=== PATIENT | male | born 2000 | race Hispanic/Latino ===

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

== ENCOUNTER 2022-09-29 01:12 | Emergency (ER) | payer MEDICAID ==
[~2022-09-29] VITALS: Ht 180.3 cm; Wt 99.8 kg
[~2022-09-29 01:12] MED LIST: ALBU8.5H8 IH; D-ME1POW16 PO
[2022-09-29] MEDS ORDERED: IBUP-1493 PO (02:12)
[2022-09-29] MEDS ORDERED: CEPH500B PO (02:12)
[2022-09-29] MEDS ORDERED: CEFAZOLIN SODIUM 1 GM VIAL ONE (02:15)
[2022-09-29] MEDS ORDERED: TETANUS/DIPHTHERIA TOXOID [ADULT] 0.5 ML VIAL IM ONE (02:16)
[2022-09-29] MEDS ORDERED: DIPH,PERTUSS(ACELL),TET VAC/PF 0.5 ML VIAL IM ONE (02:30)
[2022-09-29] MEDS ORDERED: CEFAZOLIN SODIUM 1 GM VIAL IM SCH (02:30)
[2022-09-29 02:53] VITALS: BP 126/72
== END 2022-09-29 03:12 | disposition home or self-care (01) ==
LOC: EDH 01:12
DX: S61.216A Laceration without foreign body of right little finger without damage to nail, initial encounter (principal); W26.0XXA Contact with knife, initial encounter; Y93.89 Activity, other specified; Y92.89 Other specified places as the place of occurrence of the external cause; Y99.8 Other external cause status
CPT/HCPCS: 99284; 90714; 73130; 96372; 90471; 12001; J0690

== ENCOUNTER 2025-04-30 05:27 | Emergency (ER) | payer SELFPAY ==
[~2025-04-30] VITALS: Ht 180.3 cm; Wt 136.1 kg
[~2025-04-30 05:27] MED LIST changes: +CEPH500B PO; +IBUP-1493 PO
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
[2025-04-30] MEDS: 0.9%NACL 1000ML 1,000 ML IV ONE (06:28)
--- NOTE | 2025-04-30 06:34 | HMCIMG ---
EXAM: CR right foot, 3 View. CLINICAL HISTORY: [facility] COMPARISON: None provided. FINDINGS: BONES: No acute fracture or aggressive appearing osseous lesion. JOINTS: The joint spaces appear within normal limits. No dislocation. SOFT TISSUES: The soft tissues are unremarkable. IMPRESSION: No acute osseous abnormality. /[place]
[2025-04-30] MEDS: LIDOCAINE 2%-EPI 1:200,000 20 ML VIAL IJ ONE ×2 (07:35→07:36)
[2025-04-30] MEDS ORDERED: CEPH500B PO (07:51)
[2025-04-30 08:44] VITALS: BP 175/97; PULSE 99; RESP 20; TEMP 99.3; O2SAT 95
== END 2025-04-30 08:44 | disposition home or self-care (01) ==
LOC: EDH 05:27
DX: S91.322A Laceration with foreign body, left foot, initial encounter (principal); W34.00XA Accidental discharge from unspecified firearms or gun, initial encounter; Y93.89 Activity, other specified; Y92.89 Other specified places as the place of occurrence of the external cause; Y99.8 Other external cause status; Z79.1 Long term (current) use of non-steroidal anti-inflammatories (NSAID)
CPT/HCPCS: 99285; 12032; 96365; 96375; 90714; 73630; 90471; J2405; J2270; J3490; J0690; 12002